=== PATIENT | female | born 1990 | race African-American/Black ===

== ENCOUNTER 2016-11-30 20:33 | Emergency (ER) | payer OTHER ==
[~2016-11-30] VITALS: Ht 170.2 cm; Wt 65.8 kg
[~2016-11-30 20:33] MED LIST: DIAZEPAM 5 MG5 M1 PO; IBUPROFEN 600600 M1 PO; KEFLEX500 MG PO; MAGNESIUM OXID200 MG PO; MAGNESIUM100 MG PO; NOHOMEMEDICATIONS; POTASSIUM CHLO10 ME1 PO; ULTRAM 50MG TAB50 MG PO
[2016-11-30 21:11] LABS: URINE BILIRUBIN NEGATIVE (Negative); URINE BLOOD NEGATIVE (Negative); URINE COLOR YELLOW; URINE GLUCOSE-RANDOM* NEGATIVE (Negative); URINE KETONES NEGATIVE (Negative); URINE NITRITE NEGATIVE (Negative); URINE PROTEIN (DIPSTICK) TRACE (Negative); URINE SPECIFIC GRAVITY 1.025 (1.003-1.035); URINE UROBILINOGEN 0.2 E.U./dl (0.2-1.0)
[2016-11-30 21:46] LABS: ABSOLUTE NEUTROPHILS 6.5 thou/uL (1.4-8.2); BASOPHILS 0.7 % (0.0-2.0); HEMATOCRIT 36.2 % (37.0-47.0); HEMOGLOBIN 12.3 gm/dL (12.0-15.0); LYMPHOCYTES 16.5 % (24.0-44.0); MCH 30.3 pg (26.0-34.0); MCHC 33.8 g/dL (28.0-37.0); MCV 89.5 fL (80.0-100.0); MONOCYTES 8.4 % (1.0-8.0); PLATELET COUNT 172 thou/uL (150-400); POLYS 73.4 % (36.0-66.0); RBC 4.04 mil/uL (4.20-5.00); RDW 14.2 % (10.5-14.5); WBC 8.9 thou/uL (4.0-11.0)
[2016-11-30 21:47] LABS: MANUAL DIFF NO
[2016-11-30 21:52] LABS: ANION GAP 9 mmol/L (7-16); BUN 9 mg/dL (7-18); CALCIUM 9.3 mg/dL (8.5-10.1); CHLORIDE 105 mmol/L (98-107); CO2 26 mmol/L (21-32); CREATININE 0.8 mg/dL (0.6-1.0); GLUCOSE 107 mg/dL (74-106); POTASSIUM 3.3 mmol/L (3.5-5.1); SODIUM 140 mmol/L (136-145)
[2016-11-30 21:58] LABS: ALBUMIN 3.6 g/dL (3.4-5.0); ALKALINE PHOSPHATASE 69 U/L (46-116); DIRECT BILIRUBIN < 0.1 mg/dL (<0.1-0.3); SGOT 17 U/L (15-37); SGPT 17 U/L (30-65); TOTAL BILIRUBIN 0.5 mg/dL (<0.1-1.0); TOTAL PROTEIN 8.1 g/dL (6.4-8.2)
[2016-11-30 22:34] VITALS: BP 124/72
== END 2016-11-30 22:36 | disposition home or self-care (01) ==
LOC: ER 20:33
PROVIDERS: Emergency Medicine
DX: B34.9 Viral infection, unspecified (principal); F17.200 Nicotine dependence, unspecified, uncomplicated

== ENCOUNTER 2018-01-19 22:06 | Emergency (ER) | payer BC, OTHER ==
[~2018-01-19] VITALS: Ht 170.2 cm; Wt 78.0 kg
[2018-01-19 22:44] LABS: URINE BILIRUBIN NEGATIVE (Negative); URINE BLOOD NEGATIVE (Negative); URINE CLARITY CLEAR; URINE COLOR YELLOW; URINE GLUCOSE-RANDOM* NEGATIVE (Negative); URINE KETONES NEGATIVE (Negative); URINE LEUKOCYTES-REFLEX NEGATIVE (Negative); URINE NITRITE-REFLEX NEGATIVE (Negative); URINE PROTEIN (DIPSTICK) NEGATIVE (Negative); URINE UROBILINOGEN 0.2 E.U./dl (0.2-1.0)
[2018-01-20] MEDS ORDERED: DIFLUCAN150 MG PO (00:10)
[2018-01-20 00:17] VITALS: BP 102/65
== END 2018-01-20 00:19 | disposition home or self-care (01) ==
LOC: ER 22:06
PROVIDERS: Emergency Medicine
DX: R10.31 Right lower quadrant pain (principal); R10.32 Left lower quadrant pain; Z20.2 Contact with and (suspected) exposure to infections with a predominantly sexual mode of transmission; F17.210 Nicotine dependence, cigarettes, uncomplicated

== ENCOUNTER 2018-04-12 21:46 | Emergency (ER) | payer BC, OTHER ==
[~2018-04-12] VITALS: Ht 170.2 cm; Wt 77.1 kg
[~2018-04-12 21:46] MED LIST changes: +DIFLUCAN150 MG PO; +TORADOL 10 MG T10 MG PO
[2018-04-12 21:57] VITALS: BP 110/76
== END 2018-04-12 21:58 | disposition home or self-care (01) ==
LOC: ER 21:46
DX: S61.412D Laceration without foreign body of left hand, subsequent encounter (principal); F17.210 Nicotine dependence, cigarettes, uncomplicated; W26.8XXD Contact with other sharp object(s), not elsewhere classified, subsequent encounter